=== PATIENT | male | born 1990 | race African-American/Black ===

== ENCOUNTER 2019-02-20 21:13 | Emergency (ER) | payer SELFPAY ==
[2019-02-20] MEDS ORDERED: ASPIRIN 81 MG TABLET, CHEWABLE PO ONE (21:34)
--- NOTE | 2019-02-20 21:44 | ER Document Report ---
ED Cardiac - General Chief Complaint: Chest Pressure Stated Complaint: CHEST PAIN Time Seen by Provider: 02/20/19 21:34 Primary Care Provider: HOLLIS RETANA [NO LOCAL MD] - Follow up as needed Mode of Arrival: Ambulatory Information source: Patient Notes: Patient is an otherwise healthy 28-year-old male presenting to the emergency department chief complaint of chest tightness that initially began 3 weeks ago. He reports it is an intermittent tightness and is not associated with any activity. Today after playing basketball he experience another episode of the chest tightness with radiation straight through to his back in approximately 6 PM. He also reported some altered sensation in the right arm and right neck, he stated it felt like a pins and needle sensation. He reports associated nausea and shortness of breath with episodes of chest pressure. He has no past medical history, he does not take any daily medications, he does report a history of an umbilical hernia repair several years ago. He is a non-smoker but reports use of marijuana. TRAVEL OUTSIDE OF THE [place] IN LAST 30 DAYS: No - Related Data Allergies/Adverse Reactions: No Known Allergies Allergy (Unverified 06/26/11 17:09) Past Medical History - General Information source: Patient - Social History Smoking Status: Never Smoker Frequency of alcohol use: Occasional Drug Abuse: Marijuana. denies: Cocaine Lives with: Family Family History: Reviewed & Not Pertinent - Medical History Medical History: Negative Past Surgical History: Reports: Other - Umbilical hernia repair - Immunizations Immunizations up to date: Yes Hx Diphtheria, Pertussis, Tetanus Vaccination: Yes Review of Systems - Review of Systems Constitutional: No symptoms reported EENT: No symptoms reported Cardiovascular: Chest pain. denies: Palpitations Respiratory: Short of breath Gastrointestinal: Nausea Genitourinary: No symptoms reported Male Genitourinary: No symptoms reported Musculoskeletal: See HPI Skin: No symptoms reported Hematologic/Lymphatic: No symptoms reported Neurological/Psychological: No symptoms reported Physical Exam - Vital signs Vitals: Resp 11 L 02/20/19 21:37 - Notes Notes: PHYSICAL EXAMINATION: GENERAL: Well-appearing, well-nourished and in no acute distress. HEAD: Atraumatic, normocephalic. EYES: Pupils equal round and reactive to light, extraocular movements intact, sclera anicteric, conjunctiva are normal. ENT: Nares patent, oropharynx clear without exudates. Moist mucous membranes. NECK: Normal range of motion, supple without lymphadenopathy LUNGS: Breath sounds clear to auscultation bilaterally and equal. No wheezes rales or rhonchi. HEART: Regular rate and rhythm without murmurs ABDOMEN: Soft, nontender, nondistended abdomen. No guarding, no rebound. No masses appreciated. Musculoskeletal: Normal range of motion, no pitting or edema. No cyanosis. NEUROLOGICAL: Cranial nerves grossly intact. Normal speech, normal gait. Normal sensory, motor exams PSYCH: Normal mood, normal affect. SKIN: Warm, Dry, normal turgor, no rashes or lesions noted. Course - Re-evaluation Re-evalutation: 02/20/19 21:54 Patient appears well, nontoxic is alert, oriented and in no acute distress. Patient's EKG shows a sinus rhythm, rate of [address] elevation, most likely LVH however there is no comparison on file. He does have a reasonable story with his chest pain however he has no cardiac history and no cardiac risk factors. Due to his abnormal EKG we will proceed at this time with a full cardiac work-up. Patient's physical examination is unremarkable, he is laughing and smiling during my exam although he does report a chest pressure of 4/5. 02/20/19 21:57 Nitroglycerin ordered, nursing staff will monitor patient's chest pain level. We will also inquire again about any cocaine use, patient denied this to me but his mother was present in the room. 02/20/19 22:55 Drug screen is negative. First troponin is mildly elevated at 0.032. Repeat EKG ordered. Patient does report improvement of his pain after 2 doses of nitroglycerin. He states he still feels a slight pressure but it has decreased from a 4/5 down to a 2/5. I did discuss the case with my attending physician. We will continue to monitor patient and will draw a repeat troponin. Patient was initially hypertensive on arrival with a blood pressure systolically 160. Patient denies any history of hypertension but as I did look through his chart he was seen here in 2011 and also had hypertension at that time. He has never been formally diagnosed with hypertension. 02/21/19 02:25 Repeat troponin came back at 0.041 which is elevated from previous. I did call our copper roller handler printing, Dr. uYan as patient is currently chest pain-free. He does believe this patient needs to be transferred to a tertiary facility for possible cardiac cath. Call was then placed to [facility]. Currently awaiting callback. Again patient is currently chest pain- free, his blood pressure is 130/74, he is breathing 11 times per minute, his pulse ox is 99% on room air and his heart rate is ranging between 49-56. 02/21/19 03:23 Patient accepted for transfer to [facility]. I spoke with Dr. Lozano who is excepting the patient on behalf of Dr. Lex Enciso. No additional orders were requested at this time. 02/21/19 05:50 Patient reevaluated at this time and is stable for transport. Transport expected to be here in 10 minutes. There is a delay in transport, nursing staff working on securing transport. Patient remained stable, vital signs within normal limits. 02/21/19 08:13 Transport is at bedside to transport patient to [facility]. Patient is chest pain-free at this time. Patient stable for transport. - Vital Signs Vital signs: Temp Pulse Resp BP Pulse Ox 98.5 F 14 140/83 H 100 02/21/19 08:00 02/21/19 08:00 02/21/19 08:00 02/21/19 08:00 - Laboratory Result Diagrams: 02/20/19 21:40 02/20/19 21:40 Laboratory results interpreted by me: 02/20/19 21:40 Carbon Dioxide 31 H Discharge - Discharge Clinical Impression: Elevated troponin, Abnormal EKG Chest pain Qualifiers: Chest pain type: unspecified Qualified Code(s): R07.9 - Chest pain, unspecified Condition: Stable Disposition: [facility] Forms: Treatment of Relative/Child Referrals: LOCALMD,NO [NO LOCAL MD] - Follow up as needed
[2019-02-20 21:50] LABS: ABSOLUTE EOSINOPHILS # (AUTO) 0.2 10^3/uL (0.0-0.6); ABSOLUTE LYMPHOCYTES (AUTO) 1.7 10^3/uL (0.5-4.7); ABSOLUTE MONOCYTES (AUTO) 0.3 10^3/uL (0.1-1.4); ABSOLUTE NEUT (AUTO) 2.5 10^3/uL (1.7-8.2); EOSINOPHILS % (AUTO) 5.1 % (0-6); HEMATOCRIT 39.6 % (37.9-51.0); HEMOGLOBIN 13.7 g/dL (13.5-17.0); LYMPHOCYTES % (AUTO) 34.3 % (13-45); MEAN CORPUSCULAR HEMOGLOBIN 30.8 pg (27.0-33.4); MEAN CORPUSCULAR HGB CONC 34.5 g/dL (32.0-36.0); MEAN CORPUSCULAR VOLUME 89 fl (80-97); MONOCYTES % (AUTO) 7.2 % (3-13); PLATELET COUNT 213 10^3/uL (150-450); RED BLOOD COUNT 4.44 10^6/uL (4.35-5.55); RED CELL DISTRIBUTION WIDTH 12.6 % (11.5-14.0); SEGMENTED NEUTROPHILS % (AUTO) 52.4 % (42-78); TOTAL CELLS COUNTED % (AUTO) 100 %; WHITE BLOOD COUNT 4.8 10^3/uL (4.0-10.5)
[2019-02-20 22:04] LABS: ALBUMIN 4.4 g/dL (3.5-5.0); ALKALINE PHOSPHATASE 79 U/L (38-126); ANION GAP 7 (5-19); ASPARTATE AMINO TRANSFERASE 21 U/L (17-59); BILIRUBIN,DIRECT 0.1 mg/dL (0.0-0.4); BILIRUBIN,TOTAL 0.5 mg/dL (0.2-1.3); BLOOD UREA NITROGEN 13 mg/dL (7-20); CALCIUM 9.8 mg/dL (8.4-10.2); CARBON DIOXIDE 31 mmol/L (22-30); CHLORIDE 102 mmol/L (98-107); GLUCOSE 96 mg/dL (75-110); TOTAL PROTEIN 7.1 g/dL (6.3-8.2)
[2019-02-20] MEDS: NITROGLYCERIN 0.4 MG/TAB 25 TAB/BOTTLE SL PRN ×2 (22:06→22:25)
[2019-02-20 22:41] LABS: URINE AMPHETAMINES SCREEN NEGATIVE; URINE BARBITURATES SCREEN NEGATIVE; URINE BENZODIAZEPINES SCREEN NEGATIVE; URINE COCAINE SCREEN NEGATIVE; URINE MARIJUANA (THC) SCREEN UNCONFIRMED POSITIVE; URINE METHADONE SCREEN NEGATIVE; URINE PHENCYCLIDINE SCREEN NEGATIVE
--- NOTE | 2019-02-20 23:29 | RADIOLOGY REPORT (SQ) ---
EXAM DESCRIPTION: XR CHEST 2 VIEWS COMPLETED DATE/TME: 02/20/2019 22:52 CLINICAL HISTORY: 28 years Male, chest pain COMPARISON: None. NUMBER OF VIEWS/TECHNIQUE: 2, Frontal, Lateral FINDINGS: Adequate lung volume, clear parenchyma, normal cardiac silhouette, and intact bony thorax. IMPRESSION: No acute cardiopulmonary findings.
[2019-02-21] MEDS ORDERED: NITROGLYCERIN 0.4 MG/TAB 25 TAB/BOTTLE SL PRN (03:06)
[2019-02-21 08:13] VITALS: BP 140/83
--- NOTE | 2019-02-21 10:23 | EKG REPORT ---
SEVERITY:- ABNORMAL ECG - SINUS BRADYCARDIA CONSIDER LEFT VENTRICULAR HYPERTROPHY ABNORMAL T, PROBABLE ISCHEMIA, ANT-LAT LEADS ANTERIOR ST ELEVATION, PROBABLY DUE TO LVH : Confirmed by: Shelley Yuan MD 21-Feb-2019 10:22:52
--- NOTE | 2019-02-21 10:25 | EKG REPORT ---
SEVERITY:- ABNORMAL ECG - SINUS RHYTHM ATRIAL PREMATURE COMPLEX PROBABLE LVH WITH SECONDARY REPOL ABNRM ABNORMAL T, PROBABLE ISCHEMIA, ANT-LAT LEADS ANTERIOR ST ELEVATION, PROBABLY DUE TO LVH : Confirmed by: Shelley Yuan MD 21-Feb-2019 10:24:14
--- NOTE | 2019-02-21 10:25 | EKG REPORT ---
SEVERITY:- ABNORMAL ECG - SINUS RHYTHM PROBABLE LVH WITH SECONDARY REPOL ABNRM REPOL ABNRM, PROBABLE ISCHEMIA, ANT-LAT LEADS ANTERIOR ST ELEVATION, PROBABLY DUE TO LVH : Confirmed by: Shelley Yuan MD 21-Feb-2019 10:25:08
--- NOTE | 2019-02-21 10:25 | EKG REPORT ---
SEVERITY:- ABNORMAL ECG - SINUS RHYTHM ABNORMAL T, PROBABLE ISCHEMIA, INFERIOR LEADS BORDERLINE ST ELEVATION, ANTERIOR LEADS PROBABLE LVH W/ SECONDARY REPOL ABNORMALITIES : Confirmed by: Shelley Yuan MD 21-Feb-2019 10:24:08
== END 2019-02-21 08:20 | disposition short-term general hospital (02) ==
LOC: ER 21:13
DX: R07.89 Other chest pain (principal); R94.31 Abnormal electrocardiogram [ECG] [EKG]; I10 Essential (primary) hypertension; R79.89 Other specified abnormal findings of blood chemistry; R20.2 Paresthesia of skin; R06.02 Shortness of breath; R11.0 Nausea; F12.10 Cannabis abuse, uncomplicated
CPT/HCPCS: 36415; 71046; 80053; 80307; 84484; 85025; 93005; 93010; 99285

== ENCOUNTER 2019-12-24 04:10 | Emergency (ER) | payer BC ==
[2019-12-24 05:03] LABS: ABSOLUTE BASOPHILS # (AUTO) 0.1 10^3/uL (0.0-0.2); ABSOLUTE EOSINOPHILS # (AUTO) 0.3 10^3/uL (0.0-0.6); ABSOLUTE LYMPHOCYTES (AUTO) 2.1 10^3/uL (0.5-4.7); ABSOLUTE MONOCYTES (AUTO) 0.3 10^3/uL (0.1-1.4); ABSOLUTE NEUT (AUTO) 1.9 10^3/uL (1.7-8.2); BASOPHILS % (AUTO) 1.1 % (0-2); EOSINOPHILS % (AUTO) 6.6 % (0-6); HEMATOCRIT 40.5 % (37.9-51.0); LYMPHOCYTES % (AUTO) 44.4 % (13-45); MEAN CORPUSCULAR HEMOGLOBIN 31.5 pg (27.0-33.4); MEAN CORPUSCULAR HGB CONC 34.7 g/dL (32.0-36.0); MEAN CORPUSCULAR VOLUME 91 fl (80-97); MONOCYTES % (AUTO) 7.2 % (3-13); PLATELET COUNT 238 10^3/uL (150-450); RED BLOOD COUNT 4.45 10^6/uL (4.35-5.55); RED CELL DISTRIBUTION WIDTH 12.6 % (11.5-14.0); SEGMENTED NEUTROPHILS % (AUTO) 40.7 % (42-78); TOTAL CELLS COUNTED % (AUTO) 100 %; WHITE BLOOD COUNT 4.6 10^3/uL (4.0-10.5)
[2019-12-24 05:27] LABS: CREATINE KINASE MB 0.94 ng/mL (<4.55)
--- NOTE | 2019-12-24 05:33 | RADIOLOGY REPORT (SQ) ---
EXAM DESCRIPTION: XR CHEST 2 VIEWS COMPLETED DATE/TME: 12/24/2019 00:00 CLINICAL HISTORY: 29 years, Male, chest pain COMPARISON: 02/20/2019 NUMBER OF VIEWS: Two TECHNIQUE: Two views of the chest LIMITATIONS: None. FINDINGS: The lungs are clear. The heart is normal in size. There is no pneumothorax or pleural effusion. There is no acute fracture. IMPRESSION: No acute cardiopulmonary abnormality. copyright 2010 [employer]- All Rights Reserved
[2019-12-24 05:37] LABS: ALBUMIN 4.5 g/dL (3.5-5.0); ALKALINE PHOSPHATASE 98 U/L (38-126); ANION GAP 8 (5-19); ASPARTATE AMINO TRANSFERASE 30 U/L (17-59); BILIRUBIN,TOTAL 0.5 mg/dL (0.2-1.3); BLOOD UREA NITROGEN 14 mg/dL (7-20); CALCIUM 9.6 mg/dL (8.4-10.2); CARBON DIOXIDE 27 mmol/L (22-30); CHLORIDE 102 mmol/L (98-107); CREATINE KINASE 240 U/L (55-170); GLUCOSE 105 mg/dL (75-110); POTASSIUM 4.3 mmol/L (3.6-5.0); TOTAL PROTEIN 7.5 g/dL (6.3-8.2)
[2019-12-24 05:40] LABS: TROPONIN I 0.043 ng/mL
--- NOTE | 2019-12-24 09:51 | ER Document Report ---
Entered by YAIR CORNELIUS SCRIBE 12/24/19 0903 Acting as scribe for:MAYRA JAIMES MD ED General - General Chief Complaint: Shortness Of Breath Stated Complaint: SHORTNESS OF BREATH Time Seen by Provider: 12/24/19 08:46 Mode of Arrival: Ambulatory Information source: Patient Notes: This 29 year old male patient with idiopathic cardiomyopathy that presents to the emergency department today with complaints of waking up from sleep this morning at about 3:00 AM with complaints of chest tightness with associated shortness of breath. Patient was seen here on Feb 20 2019 for chest pain, he had an indeterminate troponin and was sent to [facility]. Patient had an echo which found cardiomyopathy. Patient was sent home on a low-dose of metoprolol but he has not been taking this medication for the last month. TRAVEL OUTSIDE OF THE [place] IN LAST 30 DAYS: No - Related Data Allergies/Adverse Reactions: No Known Allergies Allergy (Unverified 06/26/11 17:09) Home Medications: metoprolol. atorvastatin Past Medical History - General Information source: Patient - Social History Smoking Status: Never Smoker Cigarette use (# per day): No Frequency of alcohol use: None Drug Abuse: None Occupation: Warehouse Order Puller at [employer] Family History: Reviewed & Not Pertinent Patient has homicidal ideation: No - Past Medical History Cardiac Medical History: Reports: Other - idiopathic cardiomyopathy Past Surgical History: Reports: Hx Herniorrhaphy - umbilical - Immunizations Immunizations up to date: Yes Hx Diphtheria, Pertussis, Tetanus Vaccination: Yes Review of Systems - Review of Systems Constitutional: No symptoms reported EENT: No symptoms reported Cardiovascular: See HPI, Chest pain Respiratory: See HPI, Short of breath Gastrointestinal: No symptoms reported Genitourinary: No symptoms reported Male Genitourinary: No symptoms reported Musculoskeletal: No symptoms reported Skin: No symptoms reported Hematologic/Lymphatic: No symptoms reported Neurological/Psychological: No symptoms reported -: Yes All other systems reviewed and negative Physical Exam - Vital signs Vitals: Pulse Resp BP Pulse Ox 51 L 18 147/93 H 100 12/24/19 04:16 12/24/19 04:16 12/24/19 04:16 12/24/19 04:16 - Notes Notes: Physical Exam: General: Alert, appears well. HEENT: Normocephalic. Atraumatic. PERRL. Extraocular movements intact. Oropharynx clear. Neck: Supple. Non-tender. Respiratory: No respiratory distress. Clear and equal breath sounds bilaterally. Cardiovascular: Regular rate and rhythm. Abdominal: Normal Inspection. Non-tender. No distension. Normal Bowel Sounds. Back: No gross abnormalities. Extremities: Moves all four extremities. Upper extremities: Normal inspection. Normal ROM. Lower extremities: Normal inspection. No edema. Normal ROM. Neurological: Normal cognition. AAOx4. Normal speech. Psychological: Normal affect. Normal Mood. Skin: Warm. Dry. Normal color. Course - Re-evaluation Re-evalutation: 12/24/19 10:47 Patient's d-dimer was elevated at 0.84, CTA chest was done due to the patient's reported symptoms and the elevated d-dimer. CTA chest was unremarkable. Serial troponins were 0.043 and 0.044 Serial troponins done on 02/20/2019 were around 0.040, so the troponins today are unchanged from what was recorded on his last visit. - Vital Signs Vital signs: Temp Pulse Resp BP Pulse Ox 98 F 51 L 14 128/89 H 100 12/24/19 11:49 12/24/19 04:16 12/24/19 10:00 12/24/19 05:01 12/24/19 10:00 - Laboratory Result Diagrams: 12/24/19 04:42 12/24/19 04:42 Laboratory results interpreted by me: 12/24/19 12/24/19 12/24/19 04:42 04:42 04:42 Eos % (Auto) 6.6 H Seg Neutrophils % 40.7 L D-Dimer 0.84 H Sodium 136.6 L Creatine Kinase 240 H - Diagnostic Test Radiology reviewed: Image reviewed, Reports reviewed - CTA chest does not show pulmonary emboli or other abnormalities. Gallbladder ultrasound is unremarkable. - EKG Interpretation by Ia EKG shows normal: Sinus rhythm, [place], Intervals, QRS Complexes. abnormal: ST-T Waves - Anterior ST elevation due to LVH, anterolateral repolarization abnormality Rate: Bradycardia - 47 Voltage: Consistant with LVH When compared to previous EKG there are: No significant change - Compared to the EKGs done on 02/20/2019 Discharge - Discharge Clinical Impression: Tightness in chest, Shortness of breath Condition: Stable Disposition: HOME, SELF-CARE Additional Instructions: Chest Pain of Unclear Cause The exact cause of your chest pain isn't clear. Fortunately, there is no evidence of a dangerous medical condition. Further testing may be required to find the source of the pain. Most often, we find that this pain is coming from the chest wall -- the muscles or rib joints in the chest. But chest pain can come from the lung and lung lining, the esophagus, the heart valves or heart lining, and even the stomach or gallbladder. Rest. Eat lightly until the pain is gone. We may prescribe medicine for pain and inflammation. You should call the physician immediately if the pain radiates to the shoulder, jaw or arms; if you start to run a fever or develop a cough; or if you develop shortness of breath, or other new or alarming symptoms. Dyspnea, Nonspecific You were evaluated for shortness of breath, or dyspnea. Dyspnea has many causes, and some are more serious than others. Sometimes it's impossible to diagnose the cause of dyspnea with the tests that are available on an emergency basis. Based on our evaluation today, you do not need hospitalization now. We found no evidence of pneumonia, collapsed lung, blood clots in the lung, tumors, or heart failure. Causes of non-specific dyspnea can include asthma or bronchospasm, hyperventilation, emotional distress, heart disease, emphysema, fibrosis of the lung, and stiffness of the chest wall. In healthy individuals with a single episode, it's sometimes reasonable to do nothing but wait to see if the problem occurs again. Additional tests used to evaluate dyspnea can include cardiac stress testing, echocardiography, pulmonary function testing, CAT scan of the chest, bronchoscopy or pulmonary biopsy. Return if shortness of breath persists or worsens, or if you develop chest pain, fever, cough, confusion, or fainting. No clear explanation for your symptoms of chest tightness and shortness of breath were found today. Your EKG is unchanged from the ones done on February 20, 2019. The CT scan of your chest, lungs, and large vessels was unremarkable. The gallbladder ultrasound was normal. You can take Tylenol for pain if needed. Rest, do not exert yourself if you are feeling short of breath. Follow-up with a local primary care provider Friday for recheck if not improving. RETURN TO THE EMERGENCY ROOM IF ANY NEW OR WORSENING SYMPTOMS. I personally performed the services described in the documentation, reviewed and edited the documentation which was dictated to the scribe in my presence, and it accurately records my words and actions.
--- NOTE | 2019-12-24 09:57 | RADIOLOGY REPORT (SQ) ---
EXAM DESCRIPTION: CTA CHEST IMAGES COMPLETED DATE/TIME: 12/24/2019 9:31 am REASON FOR STUDY: Elevated d-dimer,chest tight w/SOB,cardiomyopathy COMPARISON: None. TECHNIQUE: CT scan of the chest performed using helical scanning technique with dynamic intravenous contrast injection. Images reviewed with lung, soft tissue and bone windows. Reconstructed coronal and sagittal MPR images reviewed. Additional 3 dimensional post-processing performed to develop Maximal Intensity Projection images (NC P). All images stored on PACS. All CT scanners at this facility use dose modulation, iterative reconstruction, and/or weight based d osing when appropriate to reduce radiation dose to as low as reasonably achievable (ALARA). [facility]: Dose Right [facility]: CareDose [facility]: Dose Right [facility]: Teradose 4D [facility]: OurVinyl CONTRAST TYPE AND DOSE: contrast/concentration: Isovue 350.00 mmol/ml; Total Contrast Delivered: 71. 0 ml; Total Saline Delivered: 80.0 ml Contrast bolus optimized for the pulmonary arteries. Not diagnostic for the aorta. RENAL FUNCTION: BUN 14, creatinine 1.08 RADIATION DOSE: CT Rad equipment meets quality standard of care and radiation dose reduction techniq ues were employed. CTDIvol: 6.6 - 39.7 mGy. DLP: 636 mGy-cm. . LIMITATIONS: None. FINDINGS: LUNGS AND PLEURA: No masses, infiltrates, or pneumothorax. No pleural effusions or pleura l calcifications. AORTA AND GREAT VESSELS: No aneurysm. Contrast bolus not optimized for the aorta. HEART: No pericardial effusion. No significant coronary artery calcifications. PULMONARY ARTERIES: No emboli visualized in the main pulmonary arteries or the segmental branches. HILAR AND MEDIASTINAL STRUCTURES: No identified masses or abnormal nodes. HARDWARE: None in the chest. UPPER ABDOMEN: No significant findings. Limited exam. THYROID AND OTHER SOFT TISSUES: Thyroid is unremarkable. There is bilateral gynecomastia. BONES: No acute or significant finding. 3D MIPS: Confirm above findings. OTHER: No other significant finding. IMPRESSION: 1. No pulmonary emboli. No consolidation. 2. Bilateral gynecomastia. COMMENT: Quality ID # [id number]: Final reports with documentation of one or more dose reduction techniques (e.g., Automated exposure control, adjustment of the mA and/or kV according to patient size, use of iterative reconstruction technique) TECHNICAL DOCUMENTATION: JOB ID: [id number] [employer]- All Rights Reserved Reading location - IP/workstation name: [email or web address]
--- NOTE | 2019-12-24 12:36 | RADIOLOGY REPORT (SQ) ---
EXAM DESCRIPTION: U/S ABDOMEN LIMITED W/O DOP IMAGES COMPLETED DATE/TIME: 12/24/2019 12:28 pm REASON FOR STUDY: Epigastric chest pain COMPARISON: None. TECHNIQUE: Dynamic and static grayscale images acquired of the abdomen and recorded on PACS. Additio nal selected color Doppler and spectral images recorded. LIMITATIONS: None. FINDINGS: PANCREAS: No masses. Visualized pancreatic duct normal caliber. LIVER: No masses. Echotexture normal. LIVER VASCULATURE: Normal directional flow of the main portal vein and hepatic veins. GALLBLADDER: No stones. Normal wall thickness. No pericholecystic fluid. ULTRASOUND-DETECTED CAMARENA'S SIGN: Negative. INTRAHEPATIC DUCTS AND COMMON DUCT: CBD and intrahepatic ducts normal caliber. No filling defects. AORTA: No aneurysm. RIGHT KIDNEY: Normal size. Normal echogenicity. No solid or suspicious masses. No hydronephrosis. No calcifications. PERITONEAL AND RIGHT PLEURAL SPACE: No ascites or effusions. OTHER: No other significant findings. IMPRESSION: NORMAL RIGHT UPPER QUADRANT ULTRASOUND. TECHNICAL DOCUMENTATION: JOB ID: [id number] 2010 [employer]- All Rights Reserved Reading location - IP/workstation name: [email or web address]
--- NOTE | 2019-12-24 13:06 | EKG REPORT ---
SEVERITY:- ABNORMAL ECG - SINUS BRADYCARDIA CONSIDER LEFT VENTRICULAR HYPERTROPHY REPOL ABNRM, PROBABLE ISCHEMIA, ANT-LAT LEADS ANTERIOR ST ELEVATION : Confirmed by: Trever Medrano MD 24-Dec-2019 13:06:06
[2019-12-24 13:40] VITALS: BP 152/87
== END 2019-12-24 12:50 | disposition home or self-care (01) ==
LOC: ER 04:10
DX: R06.02 Shortness of breath (principal); R07.89 Other chest pain
CPT/HCPCS: 36415; 71046; 71275; 76705; 80053; 82550; 82553; 84484; 85025; 85379; 93005; 93010; 99285